=== PATIENT | male | born 1985 | race American Indian/Alaskan Native ===

== ENCOUNTER 2024-08-21 16:10 | Emergency (ER) | payer MEDICAID ==
[2024-08-21] MEDS: Morphine 15 MG Tab.ER PO ONE (17:00)
[2024-08-21] MEDS: oxyCODONE 5 MG Tab PO ONE (17:01)
== END 2024-08-21 17:35 | disposition home or self-care (01) ==
LOC: DL.ED 16:10
DX: Z89.511 Acquired absence of right leg below knee (principal)
CPT/HCPCS: 99283; A9270; 99284

== ENCOUNTER 2024-08-29 12:13 | Inpatient (IN) | payer MEDICAID ==
[2024-08-29] MEDS ORDERED: Sodium Chloride 0.9% 10 ML Syringe FLUSH PRN (13:07)
[2024-08-29 13:15] LABS: BASOPHILS PERCENT AUTO 0.2 % (0.0-1.0); EOSINOPHILS PERCENT AUTO 0.7 % (1.0-3.0); HEMATOCRIT 34.7 % (40.0-54.0); HEMOGLOBIN 11.3 g/dL (14.0-18.0); LYMPHOCYTES PERCENT AUTO 6.8 % (20.5-50.1); MEAN CORPUSCULAR HEMOGLOBIN 25.9 pg (27.0-34.0); MEAN CORPUSCULAR HGB CONC 32.6 g/dL (33.0-35.0); MEAN CORPUSCULAR VOLUME 79.4 fL (80-100); NEUTROPHILS PERCENT AUTO 86.3 % (42.2-75.2); PLATELET COUNT,PLT 470 10^3/uL (150-450); RED BLOOD CELL COUNT 4.37 10^6/uL (4.6-6.2); WHITE BLOOD CELL COUNT,WBC 18.1 10^3/uL (5.0-10.0)
[2024-08-29 13:26] LABS: ANION GAP 13.8 mEq/L (7-13); BILIRUBIN TOTAL 0.4 mg/dL (0.2-1.0); BUN/CREATININE RATIO 5.6 (No establ ref range); CREATININE 1.44 mg/dL (0.70-1.30); EST CRCL DRUG DOSING (CG) 77.06 mL/min; POTASSIUM,K 3.8 mmol/L (3.5-5.1); PROTEIN TOTAL,TP 7.7 g/dL (6.4-8.2)
[2024-08-29 13:27] LABS: A/G RATIO 0.64
[2024-08-29 13:29] LABS: LACTIC ACID 0.7 mmol/L (0.4-2.0)
[2024-08-29] MEDS: Sodium Chloride 0.9% 2,000 ML IV SCH (14:31)
[2024-08-29] MEDS: VANCOmycin 1.75 GM in Sodium Chloride 0.9% 500 ML IV ONE (15:27)
[2024-08-29] MEDS: Sodium Chloride 0.9% 1,000 ML IV SCH ×2 (15:27→21:40)
[2024-08-29] MEDS ORDERED: Polyvinyl Alcohol 1.4% Ophth Soln 15 ML Bottle EYEBOTH PRN (18:32)
[2024-08-29 18:44] LABS: PERCENT FE SATURATION 4.8 % (20.0-50.0)
[2024-08-29] MEDS: Piperacillin/Tazobactam 4.5 GM in Sodium Chloride 0.9% 100 ML IV ONE (18:46)
[2024-08-29 19:24] LABS: FOLIC ACID > 20.0 ng/mL (8.6-58.9)
[2024-08-29] MEDS: Famotidine 20 MG Tab PO SCH (19:42)
[2024-08-29] MEDS: Tamsulosin 0.4 MG Cap.ER PO SCH (19:42)
[2024-08-29] MEDS: Pregabalin 50 MG Cap PO SCH (19:42)
[2024-08-29] MEDS: Apixaban 5 MG Tab PO SCH (19:43)
[2024-08-29] MEDS ORDERED: Morphine 4 MG/ML VIAL IVPUSH PRN (19:49)
[2024-08-29] MEDS ORDERED: LORazepam 2 MG/ML SDV IVPUSH PRN (20:10)
[2024-08-29] MEDS: Morphine 2 MG/ML SYRINGE IVPUSH PRN (20:12)
[2024-08-29] MEDS: Acetaminophen 500 MG Tab PO ONE (20:57)
[2024-08-29] MEDS: chlordiazePOXIDE 25 MG Cap PO ONE (20:58)
[2024-08-29] MEDS: Piperacillin/Tazobactam 4.5 GM in Sodium Chloride 0.9% 100 ML IV SCH (21:40)
[2024-08-30] MEDS: Acetaminophen 325 MG Tab PO PRN (01:56)
[2024-08-30] MEDS: VANCOmycin 1 GM in Sodium Chloride 0.9% 250 ML IV SCH (03:07)
[2024-08-30] MEDS ORDERED: VANCOmycin 1.75 GM in Sodium Chloride 0.9% 500 ML IV SCH (06:00)
[2024-08-30 06:35] LABS: BASOPHILS PERCENT AUTO 0.1 % (0.0-1.0); HEMATOCRIT 31.7 % (40.0-54.0); HEMOGLOBIN 10.4 g/dL (14.0-18.0); LYMPHOCYTES PERCENT AUTO 8.1 % (20.5-50.1); MEAN CORPUSCULAR HEMOGLOBIN 25.9 pg (27.0-34.0); MEAN CORPUSCULAR HGB CONC 32.8 g/dL (33.0-35.0); MEAN CORPUSCULAR VOLUME 78.9 fL (80-100); MONOCYTES PERCENT AUTO 8.6 % (2-8); NEUTROPHILS PERCENT AUTO 83.2 % (42.2-75.2); PLATELET COUNT,PLT 338 10^3/uL (150-450); RED BLOOD CELL COUNT 4.02 10^6/uL (4.6-6.2); WHITE BLOOD CELL COUNT,WBC 9.7 10^3/uL (5.0-10.0)
[2024-08-30 06:54] LABS: ANION GAP 15.3 mEq/L (7-13); CALCIUM 8.4 mg/dL (8.5-10.1); CREATININE 1.23 mg/dL (0.70-1.30); EST CRCL DRUG DOSING (CG) 90.22 mL/min; POTASSIUM,K 3.3 mmol/L (3.5-5.1)
[2024-08-30] MEDS: ferumoxytoL 510 MG in Sodium Chloride 0.9% 100 ML IV ONE (08:48)
[2024-08-30] MEDS: Magnesium Sulfate 2 GM/50 mL 2 GM in Premix Bag 1 BAG IV ONE (08:56)
[2024-08-30] MEDS: Potassium Chloride 20 MEQ in Premix Bag 1 BAG IV ONE (08:56)
[2024-08-30] MEDS: VANCOmycin 1.25 GM in Sodium Chloride 0.9% 250 ML IV SCH (14:03)
[2024-08-30] MEDS: Morphine 2 MG/ML SYRINGE IVPUSH ONE (15:19)
[2024-08-30] MEDS ORDERED: Ferrous Sulfate 325 MG Tab PO SCH (18:00)
[2024-08-30] MEDS ORDERED: Potassium Chloride 10 MEQ Tab.ER PO SCH (18:00)
[2024-08-30] MEDS ORDERED: Magnesium Oxide 400 MG Tab PO SCH (18:00)
== END 2024-08-30 16:46 | DRG 564 ==
LOC: DL.ED 12:13 → DL.MS 15:57
PROVIDERS: ADMIT Internal Medicine; ATTEND Internal Medicine
DX: T87.81 Dehiscence of amputation stump (principal); A41.89 Other specified sepsis; G92.9 Unspecified toxic encephalopathy; N17.9 Acute kidney failure, unspecified; E87.1 Hypo-osmolality and hyponatremia; T81.44XA Sepsis following a procedure, initial encounter; E86.0 Dehydration; D53.9 Nutritional anemia, unspecified; E86.1 Hypovolemia; G89.29 Other chronic pain; E53.8 Deficiency of other specified B group vitamins; G47.00 Insomnia, unspecified; E78.5 Hyperlipidemia, unspecified; K21.9 Gastro-esophageal reflux disease without esophagitis; I10 Essential (primary) hypertension; J30.2 Other seasonal allergic rhinitis; F10.20 Alcohol dependence, uncomplicated; Z89.511 Acquired absence of right leg below knee; Z89.512 Acquired absence of left leg below knee; Z79.899 Other long term (current) drug therapy; Z79.01 Long term (current) use of anticoagulants; Y83.8 Other surgical procedures as the cause of abnormal reaction of the patient, or of later complication, without mention of misadventure at the time of the procedure; Y92.89 Other specified places as the place of occurrence of the external cause
CPT/HCPCS: 36415; 73700; 80048; 80053; 80202; 82272; 82607; 82746; 83540; 83550; 83605; 83735; 84145; 85025; 87040; 87070; 87075; 87077; 87186; 87205; 87428-QW; 93005; 93010; 96361; 96365; 99239; 99285; 99285-25; A9270-GY; J2270; J2543; J3371; J3475; J3480; J7030; J7040; J7050; Q0138